=== PATIENT | male | born 1955 | race Caucasian/White ===

== ENCOUNTER 2016-06-11 10:52 | Day surgery (SDC) | payer OTHER ==
--- NOTE | ~2016-06-11 | EGD ---
EGD REPORT [facility] [address] [address] NAME: PIO PEDRAZA : 55 STATUS : REG [facility] PAT#: [id number] AGE: 60 ADM/REG DATE : 06/11/16 MR#: [id number] REPORT SERV DATE: 06/11/16 DICTATED BY: BOB PRINGLE DATE: 06/11/16 REPORT STATUS : Draft TRANSCRIBED BY: [facility] DATE: 06/11/16 Endoscopy Center Patient Name: Pio Pedraza Date of : 1955 Attending MD: BOB PRINGLE MD Procedure Date No Time: 06/11/2016 Procedure: Upper GI endoscopy Indications: Follow-up of Giron's esophagus Referring MD: GM MOSLEY MD Medicines: Propofol per Anesthesia Complications: No immediate complications. Procedure: Pre-Anesthesia Assessment: - ASA Grade Assessment: III - A patient with severe systemic disease. After obtaining informed consent, the endoscope was passed under direct vision. Throughout the procedure, the patient's blood pressure, pulse, and oxygen saturations were monitored continuously. The GIF [id number] was introduced through the mouth, and advanced to the second part of duodenum. The upper GI endoscopy was accomplished without difficulty. The patient tolerated the procedure well. Findings: The esophagus and gastroesophageal junction were examined with white light. There were esophageal mucosal changes suspicious for Giron's esophagus, extending from the upper extent of the gastric folds which were at 38 cm from the incisors to the Z-line which was at 38 cm from the incisors. Tongues of salmon-colored mucosa were present. The maximum longitudinal extent of these esophageal mucosal changes was 0.2 cm in length. Mucosa was biopsied with a cold forceps for histology in 4 quadrants at intervals of 1 cm. The following biopsy specimens were sent to pathology: [Specify Bottles]. A total of 4 specimen bottles were sent to pathology. Focal radiofrequency ablation of Giron's esophagus was performed. With the endoscope in place, the position and extent of the Giron's mucosa and the anatomic landmarks were noted. The endoscope was then removed from the patient. The Halo-90 radiofrequency ablation catheter was attached to the tip of the endoscope. The endoscope with the attached radiofrequency ablation catheter was then passed transorally under direct vision into the esophagus and advanced to the areas of Giron's mucosa. The areas included tongues of Giron's mucosa. The radiofrequency ablation catheter was placed in contact with the surface of the Giron's mucosa under direct visualization and energy was applied twice at 12 J/cm2. Ablation was repeated in a likewise fashion to all visible Giron's mucosa. The ablation zone was EGD REPORT [address] [address] NAME: PIO PEDRAZA : 55 STATUS : REG [facility] PAT#: [id number] AGE: 60 ADM/REG DATE : 06/11/16 MR#: [id number] REPORT SERV DATE: 06/11/16 DICTATED BY: BOB PRINGLE DATE: 06/11/16 REPORT STATUS : Draft TRANSCRIBED BY: [employer] DATE: 06/11/16 cleaned of coagulative debris. A second round of ablation was then performed. Energy was applied twice at 12 J/cm2 to retreat the areas of Giron's epithelium that had been treated with the first series of ablation. The areas of the esophagus where Giron's mucosa had been ablated were carefully examined. A small hiatus hernia was present. The examined duodenum was normal. see dictasted note on the same day for further details Impression: - Esophageal mucosal changes suspicious for Giron's esophagus. Biopsied. Treated with radiofrequency ablation. - Hiatus hernia. - Normal examined duodenum. Procedure Code(s): --- Professional --- 41592, Esophagogastroduodenoscopy, flexible, transoral; with ablation of tumor(s), polyp(s), or other lesion(s) (includes pre- and post-dilation and guide wire passage, when performed) 81843, Esophagogastroduodenoscopy, flexible, transoral; with biopsy, single or multiple Diagnosis Code(s): --- Professional --- K22.70, Giron's esophagus without dysplasia K44.9, Diaphragmatic hernia without obstruction or gangrene CPT copyright 2013 [employer]. All rights reserved. The codes documented in this report are preliminary and upon transit bus driver review may be revised to meet current compliance requirements. Bob Pringle MD BOB PRINGLE MD 06/11/2016 1:16 PM This report has been signed electronically. Number of Addenda: 0 Note Initiated On: 06/11/2016 12:22 PM Scope Withdrawal Time 0 hours 0 minutes 0 seconds [address] [place] [address]
--- NOTE | ~2016-06-11 | OP ---
Record Of Operation [facility] [address] [place]. [address] NAME: MARCUS OLIVARES : 55 STATUS : REG [facility] PAT#: [id number] AGE: 60 ADM/REG DATE : 06/11/16 MR#: [id number] REPORT SERV DATE: 06/11/16 DICTATED BY: BOB PRINGLE DATE: 06/11/16 REPORT STATUS : Draft TRANSCRIBED BY: MODL DATE: 06/11/16 DATE OF PROCEDURE: 06/11/2016 PROCEDURE: EGD, RFA ablation, and biopsy. 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 Last treated in 12/22. SEDATION: Diprivan. FINDINGS: The Olympus videoscope was passed in the esophagus. There appeared to be complete re-epithelialization of the Giron's. There may have been a short tongue probably half a millimeter just above the gastroesophageal junction. This was biopsied. The area of possible Giron's was ablated with a focal RFA catheter with the area treated. There was a [id number] hiatal hernia. IMPRESSION: Possible focal area of Giron's though unclear. Z-line was irregular and there was a little area of Giron's of columnar line which seemed to be above where the squamous mucosa was. It was biopsied off. PLAN: If no Giron's, we will go at a six-month protocol x2. If positive Giron's may repeat earlier. MG/ANUJ Bob Pringle M.D. / [id number] CC: Lynn Mathew M.D.
[~2016-06-11 10:52] MED LIST: ALLEGRA-D12 HOUR PO; ALLEGRA180 PO; ASAB PO; IBU800 PO; PRILO PO; PROAIR HFA INH
== END 2016-06-11 23:59 | disposition home health service (06) ==
LOC: DMU 10:52
PROVIDERS: Internal Medicine Gastroenterology
PROC: 0D558ZZ Destruction of Esophagus, Via Natural or Artificial Opening Endoscopic (ICD-10-PCS; principal; 2016-06-11 14:00)
PROC: 0DB48ZX Excision of Esophagogastric Junction, Via Natural or Artificial Opening Endoscopic, Diagnostic (ICD-10-PCS; 2016-06-11 14:00)
DX: K44.9 Diaphragmatic hernia without obstruction or gangrene (principal); F17.200 Nicotine dependence, unspecified, uncomplicated; K21.9 Gastro-esophageal reflux disease without esophagitis; M19.90 Unspecified osteoarthritis, unspecified site; Z86.73 Personal history of transient ischemic attack (TIA), and cerebral infarction without residual deficits; Z88.8 Allergy status to other drugs, medicaments and biological substances
CPT/HCPCS: 88305